=== PATIENT | male | born 1950 | race Hispanic/Latino ===

== ENCOUNTER → 2024-09-04 | Outpatient (CLI) | payer MEDICARE ==
[~2024-09-04] MED LIST: ASPI-1197 PO; ATOR10 PO; DOCU100C33 PO; ENOX30DI5 SQ; FAMO20TA8 PO; FURO20TA4 PO; MEGE400O45 PO; METO25TA6 PO; POLY17PO52 PO
--- NOTE | 2024-09-08 00:57 | HMCSR ---
APPROVED REPORT EXAM: Two-dimensional and M-mode echocardiogram with Doppler and color Doppler. INDICATION ICD: I25.10 Atherosclerotic heart disease of [place] coronary artery without angina pectoris 2D Dimensions RVDd4.3 cmLVEF(%)53.7 (>50%)LVED Vol(simp.)102.0 mL IVSd1.3 (0.7-1.1cm)FS(%)28 %LVES Vol(simp.)43.0 mL LVDd4.8 (3.8-5.6cm)Ao Root(2D)3.4 (2.0-3.7cm)LVEF(%, simp.)57 % PWd1.3 (0.7-1.1cm)LVOT diam2.2 (1.8-2.4cm)LA ESV INDEX (BP)27.80 mL/m2 LVDs3.5 (2.5-4.0cm)IVC diam1.6 cm Aortic Valve AoV Vmax1.7 m/Elliott Peak GR11.2 mmHgLVOT Vmax1.0 m/s AoV VTI0.4 mAo Mean GR5.7 mmHgLVOT VTI0.25 m LEIGH (VMAX)2.4 cm2Al P1/2T743 msAVA (VTI) 2.4 cm2 Mitral Valve MV E Vmax92.2 cm/sDECEL Btia578 ms MV A Vmax61.8 cm/sP 1/2 T70 ms E/A ratio1.5MVA (PHT)3.1 cm2 MR Max PG77 mmHg TDI E/E' [place]72.4E/E' Mgcpwxo63.1 Pulmonary Valve PV Vmax0.9 m/sPV VTI0.26 mPV Mean GR2 mmHg PV Peak GR3.2 mmHg Tricuspid Valve TR Vmax2.2 m/sRAP (EST) 3 mfKqAEVB89.4 mmHg TR Peak GR19.4 mmHg Left Ventricle The left ventricle is normal in size. No regional wall motion abnormalities noted. Mild concentric le ft ventricular hypertrophy. Left ventricular systolic function is normal, estimated LVEF is 55 to 60% . Grade 2 diastolic dysfunction. Right Ventricle The right ventricle is mildly dilated. Right ventricle systolic function is at the lower limits of no rmal, TAPSE 15 mm. Atria The left atrium size is normal. The right atrium size is normal. Aortic Valve Aortic valve is trileaflet. The leaflets are thickened and calcified. Moderate aortic regurgitation, pressure half-time 608 ms There is no aortic valvular stenosis. Mitral Valve Mitral valve leaflets are mildly sclerotic but open well. Mild mitral regurgitation. There is no mitr al valve stenosis. Tricuspid Valve The tricuspid valve leaflets appear normal. Trace tricuspid regurgitation. RVSP is 19 mmHg. Pulmonic Valve Pulmonic valve is not well visualized. Great Vessels The aortic root is normal in size. The IVC is normal in size and collapses >50% with inspiration. Pericardium No pericardial effusion. Conclusion The right ventricle is mildly dilated. Mild concentric left ventricular hypertrophy. No regional wall motion abnormalities noted. Left ventricular systolic function is normal, estimated LVEF is 55 to 60%. Grade 2 diastolic dysfunction. Moderate aortic regurgitation, pressure half-time 608 ms Mild mitral regurgitation. Trace tricuspid regurgitation. PASP is 22 mmHg. No pericardial effusion.
== END | disposition home or self-care (01) ==
LOC: SHCH 13:23
PROVIDERS: ATTEND Internal Medicine Cardiovascular Disease
DX: I08.0 Rheumatic disorders of both mitral and aortic valves (principal); I25.10 Atherosclerotic heart disease of native coronary artery without angina pectoris
CPT/HCPCS: 93306